=== PATIENT | female | born 1950 | race Caucasian/White ===

== ENCOUNTER → 2020-07-10 15:00 | Outpatient (CLI) | payer MEDICARE, SELFPAY ==
[2020-07-10 16:44] LABS: Basophils # 0.1 K/mm3 (0-0.2); Eosinophils # 0.1 K/mm3 (0.0-0.4); Eosinophils % 1.1 % (0.1-12.0); Hematocrit 42.9 % (37.0-47.0); Lymphocytes # 1.5 K/mm3 (0.7-4.5); Lymphocytes % 26.3 % (10-50); Mean Corpuscular HGB Conc 32.8 g/dL (31.8-35.4); Mean Corpuscular Hemoglobin 30.2 pg (27.0-31.2); Mean Corpuscular Volume 92.2 fl (81-99); Mean Platelet Volume 9.1 fl (7.4-10.4); Monocytes # 0.4 K/mm3 (0.1-1.0); Monocytes % 6.3 % (1.7-9.3); Neutrophils # 3.7 K/mm3 (1.8-7.8); Neutrophils % 65.3 % (37.0-80.0); Platelet Count 262 K/mm3 (142-424); Red Blood Count 4.65 M/mm3 (4.20-5.40); Red Cell Distribution Width 12.4 % (11.5-17.5); White Blood Count 5.7 K/mm3 (4.8-10.8)
[2020-07-10 17:00] LABS: Alanine Aminotransferase 11 U/L (12-78); Albumin Level 4.1 g/dl (3.5-5.0); Albumin/Globulin Ratio 1.3 (1.1-1.8); Alkaline Phosphatase 73 U/L (38-126); Anion Gap 10.4 mEq/L (5-15); Aspartate Amino Transferase 22 U/L (14-36); Bilirubin,Total 0.8 mg/dl (0.2-1.3); Blood Urea Nitrogen 20 mg/dl (7-17); Calcium 9.2 mg/dl (8.4-10.2); Carbon Dioxide 27 mmol/L (22.0-30.0); Chloride 106 mmol/L (98-107); Chol/HDL Ratio 3.4 (1-3.5); Cholesterol 200 mg/dl (140-200); Estimated Glomerular Filt Rate 82 ml/min (>60); GFR (African American) 100 ML/MIN (>60); Globulin 3.2 g/dL (1.3-3.2); Glucose 96 mg/dl (74-100); HDL Cholesterol 58 mg/dl (40-60); Potassium 4.4 mmoL/L (3.5-5.1); Sodium 139 mmol/L (136-145); Total Protein,Serum 7.3 g/dl (6.3-8.2); Triglycerides 102 mg/dl (30-150); VLDL Cholesterol 20 mg/dL (0-40)
[2020-07-10 17:11] LABS: Direct LDL Cholesterol 120.05 mg/dL (100-129)
[2020-07-10 17:17] LABS: T4 (Thyroxine) 10.5 ug/dl (5.53-11.0)
[2020-07-10 17:30] LABS: Thyroid Stimulating Hormone 1.02 uIU/mL (0.465-4.68)
[2020-07-10 17:40] LABS: Hemoglobin A1C 5.3 % (4.0-6.0)
== END ==
PROVIDERS: Visit Provider Family Medicine
DX: I10 Essential (primary) hypertension (principal); E11.9 Type 2 diabetes mellitus without complications
CPT/HCPCS: 80053; 80061; 83036; 84436; 84443; 85025

== ENCOUNTER → 2021-07-16 13:18 | Outpatient (CLI) | payer MEDICARE, SELFPAY ==
[2021-07-15 17:38] LABS: Basophils % 0.5 % (0.1-2.0); Chloride 100 mmol/L (98-107); Eosinophils # 0.1 K/mm3 (0.0-0.4); Hematocrit 41.8 % (37.0-47.0); Hemoglobin 13.3 g/dL (12.2-16.2); Lymphocytes # 1.3 K/mm3 (0.7-4.5); Lymphocytes % 18.6 % (10-50); Mean Corpuscular HGB Conc 31.9 g/dL (31.8-35.4); Mean Corpuscular Hemoglobin 30.3 pg (27.0-31.2); Mean Platelet Volume 8.8 fl (7.4-10.4); Monocytes # 0.5 K/mm3 (0.1-1.0); Monocytes % 6.5 % (1.7-9.3); Neutrophils # 5.3 K/mm3 (1.8-7.8); Neutrophils % 73.5 % (37.0-80.0); Platelet Count 328 K/mm3 (142-424); Red Cell Distribution Width 12.4 % (11.5-17.5); Sodium 135 mmol/L (136-145); White Blood Count 7.2 K/mm3 (4.8-10.8)
[2021-07-15 17:39] LABS: Potassium 4.4 mmoL/L (3.5-5.1)
[2021-07-15 17:41] LABS: Blood Urea Nitrogen 17 mg/dl (7-17); Estimated Glomerular Filt Rate 98 ml/min (>60); GFR (African American) 119 ML/MIN (>60)
[2021-07-15 17:42] LABS: Anion Gap 9.4 mEq/L (5-15); Calcium 8.1 mg/dl (8.4-10.2); Carbon Dioxide 30 mmol/L (22.0-30.0); Glucose 97 mg/dl (74-100)
== END ==
PROVIDERS: Visit Provider Family Medicine
DX: Z86.010 Personal history of colon polyps (principal)
CPT/HCPCS: 80048; 85025

== ENCOUNTER → 2022-07-07 09:30 | Outpatient (CLI) | payer MEDICARE, SELFPAY ==
[2022-07-07 14:09] LABS: Basophils # 0.1 K/mm3 (0-0.2); Eosinophils # 0.1 K/mm3 (0.0-0.4); Eosinophils % 1.1 % (0.1-12.0); Hematocrit 42.7 % (37.0-47.0); Hemoglobin 13.9 g/dL (12.2-16.2); Lymphocytes # 1.4 K/mm3 (0.7-4.5); Lymphocytes % 24.9 % (10-50); Mean Corpuscular HGB Conc 32.6 g/dL (31.8-35.4); Mean Corpuscular Hemoglobin 29.5 pg (27.0-31.2); Mean Corpuscular Volume 90.6 fl (81-99); Mean Platelet Volume 8.5 fl (7.4-10.4); Monocytes # 0.4 K/mm3 (0.1-1.0); Monocytes % 6.8 % (1.7-9.3); Neutrophils # 3.7 K/mm3 (1.8-7.8); Neutrophils % 66.2 % (37.0-80.0); Platelet Count 312 K/mm3 (142-424); Red Blood Count 4.72 M/mm3 (4.20-5.40); Red Cell Distribution Width 12.4 % (11.5-17.5); White Blood Count 5.5 K/mm3 (4.8-10.8)
[2022-07-07 14:16] LABS: Alanine Aminotransferase 13 U/L (12-78); Albumin Level 4.2 g/dl (3.5-5.0); Albumin/Globulin Ratio 1.4 (1.1-1.8); Alkaline Phosphatase 76 U/L (38-126); Anion Gap 7.3 mEq/L (5-15); Aspartate Amino Transferase 21 U/L (14-36); Bilirubin,Total 0.8 mg/dl (0.2-1.3); Blood Urea Nitrogen 19 mg/dl (7-17); Calcium 8.8 mg/dl (8.4-10.2); Carbon Dioxide 31 mmol/L (22.0-30.0); Chloride 103 mmol/L (98-107); Chol/HDL Ratio 3.5 (1-3.5); Cholesterol 184 mg/dl (140-200); Estimated Glomerular Filt Rate 98 ml/min (>60); GFR (African American) 119 ML/MIN (>60); Globulin 2.9 g/dL (1.3-3.2); Glucose 88 mg/dl (74-100); HDL Cholesterol 53 mg/dl (40-60); Potassium 4.3 mmoL/L (3.5-5.1); Sodium 137 mmol/L (136-145); Total Protein,Serum 7.1 g/dl (6.3-8.2); Triglycerides 145 mg/dl (30-150); VLDL Cholesterol 29 mg/dL (0-40)
[2022-07-07 14:35] LABS: Direct LDL Cholesterol 105.24 mg/dL (100-129)
[2022-07-07 14:39] LABS: Free T4 (Free Thyroxine) 1.12 ng/dl (0.78-2.19)
[2022-07-07 14:40] LABS: 25-OH Vitamin D, Total 31.7 ng/mL (30-100)
[2022-07-07 14:55] LABS: Thyroid Stimulating Hormone 1.16 uIU/mL (0.465-4.68)
== END ==
PROVIDERS: PCP Family Medicine; Visit Provider Family Medicine
DX: E03.9 Hypothyroidism, unspecified (principal); R53.83 Other fatigue; E55.9 Vitamin D deficiency, unspecified; K59.00 Constipation, unspecified
CPT/HCPCS: 80053; 80061; 82306; 84439; 84443; 85025

== ENCOUNTER 2023-07-13 12:45 | Outpatient (CLI) | payer MEDICARE, SELFPAY ==
[2023-07-13 13:59] LABS: Adenovirus,PCR Not Detected (NotDetected); Coronavirus 19, PCR Not Detected (NotDetected); Coronavirus 229E Not Detected (NotDetected); Coronavirus NL63 Not Detected (NotDetected); Coronavirus OC43 Not Detected (NotDetected); Coronovirus HKU1,PCR Not Detected (NotDetected); Human Metapneumovirus Not Detected (NotDetected); Influenza A, PCR Not Detected (NotDetected); Influenza AH1, 2009 Not Detected (NotDetected); Influenza AH1, PCR Not Detected (NotDetected); Influenza AH3,PCR Not Detected (NotDetected); Influenza B, PCR Not Detected (NotDetected); Parainfluenza 1, PCR Not Detected (NotDetected); Parainfluenza 2, PCR Not Detected (NotDetected); Parainfluenza 3, PCR Not Detected (NotDetected); Parainfluenza 4, PCR Not Detected (NotDetected); Respiratory Syncytial Virus Not Detected (NotDetected); Rhinovirus/Enterovirus Not Detected (NotDetected)
== END 2023-07-13 23:59 ==
LOC: LAB.DROPOF 12:45
PROVIDERS: PCP Internal Medicine; Visit Provider Internal Medicine
DX: R05.9 Cough, unspecified (principal); R06.02 Shortness of breath; R09.89 Other specified symptoms and signs involving the circulatory and respiratory systems; J02.9 Acute pharyngitis, unspecified; R09.82 Postnasal drip; R53.1 Weakness
CPT/HCPCS: 87632; 87635

== ENCOUNTER 2023-09-13 10:17 | Outpatient (CLI) | payer MEDICARE, SELFPAY ==
[2023-09-13 22:26] LABS: Basophils # 0.1 K/mm3 (0-0.2); Basophils % 0.6 % (0.1-2.0); Eosinophils # 0.1 K/mm3 (0.0-0.4); Eosinophils % 0.7 % (0.1-12.0); Hemoglobin 13.9 g/dL (12.2-16.2); Lymphocytes # 1.4 K/mm3 (0.7-4.5); Lymphocytes % 19.1 % (10-50); Mean Corpuscular HGB Conc 31.6 g/dL (31.8-35.4); Mean Corpuscular Hemoglobin 30.8 pg (27.0-31.2); Mean Corpuscular Volume 97.4 fl (81-99); Mean Platelet Volume 9.7 fl (7.4-10.4); Monocytes # 0.4 K/mm3 (0.1-1.0); Monocytes % 5.5 % (1.7-9.3); Neutrophils # 5.5 K/mm3 (1.8-7.8); Platelet Count 263 K/mm3 (142-424); Red Blood Count 4.52 M/mm3 (4.20-5.40); Red Cell Distribution Width 12.8 % (11.5-17.5); White Blood Count 7.5 K/mm3 (4.8-10.8)
[2023-09-13 23:48] LABS: Chloride 105 mmol/L (98-107); Potassium 4.2 mmoL/L (3.5-5.1); Sodium 137 mmol/L (136-145)
[2023-09-13 23:50] LABS: Alanine Aminotransferase 13 U/L (12-78); Aspartate Amino Transferase 20 U/L (14-36); Blood Urea Nitrogen 19 mg/dl (7-17); Estimated Glomerular Filt Rate 120 ml/min (>60); GFR (African American) 146 ML/MIN (>60)
[2023-09-13 23:51] LABS: Albumin Level 3.7 g/dl (3.5-5.0); Albumin/Globulin Ratio 1.4 (1.1-1.8); Alkaline Phosphatase 72 U/L (38-126); Anion Gap 10.2 mEq/L (5-15); Bilirubin,Total 0.8 mg/dl (0.2-1.3); Calcium 9.1 mg/dl (8.4-10.2); Carbon Dioxide 26 mmol/L (22.0-30.0); Chol/HDL Ratio 2.9 (1-3.5); Cholesterol 205 mg/dl (140-200); Globulin 2.6 g/dL (1.3-3.2); Glucose 89 mg/dl (74-100); HDL Cholesterol 71 mg/dl (40-60); Total Protein,Serum 6.3 g/dl (6.3-8.2); Triglycerides 130 mg/dl (30-150); VLDL Cholesterol 26 mg/dL (0-40)
[2023-09-14 00:02] LABS: Direct LDL Cholesterol 116.92 mg/dL (100-129)
[2023-09-14 00:22] LABS: Thyroid Stimulating Hormone 1.21 uIU/mL (0.465-4.68)
== END 2023-09-13 23:59 | disposition home or self-care (01) ==
PROVIDERS: PCP Family Medicine; Visit Provider Family Medicine
DX: E78.5 Hyperlipidemia, unspecified (principal); K21.9 Gastro-esophageal reflux disease without esophagitis; E07.9 Disorder of thyroid, unspecified; R53.83 Other fatigue
CPT/HCPCS: 80053; 80061; 84443; 85025

== ENCOUNTER 2024-04-01 08:17 | Emergency (ER) | payer MEDICARE, SELFPAY ==
[2024-04-01 08:19] VITALS: BP 127/89; PULSE 97; RESP 18; TEMP 36.4; O2SAT 98; BMI 20.5
--- NOTE | 2024-04-01 08:38 | CT_ITS ---
FINAL REPORT TECHNIQUE: Axial imaging of the pelvis was obtained without contrast.This study was performed with techniques to keep radiation doses as low as reasonably achievable, (ALARA). Individualized dose reduction technique using automated exposure control or adjustment of mA and/or kV according to the patient's size were employed. CLINICAL HISTORY: right hip pain FINDINGS: There is no acute fracture or dislocation. Femoral heads are located bilaterally. 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 Soft tissues demonstrate no acute abnormality. Sacral ala are intact. Soft tissues are unremarkable. IMPRESSION: Change without acute bony abnormality of the pelvis. Reviewed, Interpreted and Dictated by Malina Rose MD Transcribed by Angely Antony Authenticated and [facility]
--- NOTE | 2024-04-01 08:38 | CT_ITS ---
FINAL REPORT TECHNIQUE: Thin section axial images are obtained through the abdomen and pelvis after intravenous contrast. Reconstruction images were obtained from the axial data. Exam was performed using dose reduction techniques. CLINICAL HISTORY: decreased po intake, n/v 25 lb wt loss FINDINGS: LUNG BASES: Lung bases are clear. Heart size is normal. LIVER: Slightly nodular contour. No focal lesion. GALLBLADDER/BILIARY SYSTEM: Gallbladder is present. No gallstones. No biliary dilatation. SPLEEN: Unremarkable. PANCREAS: Unremarkable. ADRENALS: Unremarkable. SYSTEM: No hydronephrosis, solid renal mass, or renal stone. There are bilateral parapelvic renal cysts. Unremarkable urinary bladder. Pelvic organs are unremarkable for age. GI TRACT: No small bowel obstruction or dilatation. Normal appendix. Diverticulosis without evidence of diverticulitis. Otherwise, no acute colon abnormality. LYMPH NODES/RETROPERITONEUM/MESENTERY: No lymphadenopathy. No abdominal aortic aneurysm. OTHER: No ascites. Uterus is present. No abnormal adnexal mass. Remaining soft tissues without acute abnormality. BONES: No acute osseous abnormality. Scoliosis is noted. IMPRESSION: No acute process. Slightly nodular liver, cirrhosis not excluded. Reviewed, Interpreted and Dictated by Malina Rose MD Transcribed by Angely Antony Authenticated and [facility]
--- NOTE | 2024-04-01 08:42 | ED_ITS ---
Discharge Plan Disposition Chief Complaint: Nausea/Vomiting/Diarrhea Prescriptions Prescriptions: No Action pravastatin 20 mg tablet See Rx Instructions .ROUTE .COMPLEX Qty: 90 3RF Dose Instruction: TAKE 1 TABLET DAILY Rx Instructions: TAKE 1 TABLET DAILY Zyrtec 10 mg capsule 10 mg PO DAILY PRN (Reason: allergy symptoms) Qty: 90 3RF Referrals Follow up/Referrals: Edmund Chowdary MD [Primary Care Provider] - See instructions Clinical Impressions Clinical Impression: Unintentional weight loss, Hip pain, right, Nausea, Parapelvic renal cyst Instructions Patient Instructions: DI for Diarrhea and Traveler's Diarrhea -- Adult, DI for Diarrhea and Traveler's Diarrhea -- Child, DI for Nausea -- Adult, DI for Nausea -- Child Print Language Print Language: Tristanian Discharge ED Provider: Lit Stroud General Adult HPI General Chief complaint: Nausea/Vomiting/Diarrhea Stated complaint: Pain in R hip and abd, vomiting Time Seen by Provider: 04/01/24 08:30 Mode of Arrival: Ambulatory Source of Information: Patient Limitations: No Limitations Description of Symptoms (Recalled from ER Triage Doc. by RN): Patient reports nausea, inability to keep anything down and right hip pain. States she has been seen at [place] [facility] twice and was told she has bursitis in her hip. States she is unable to keep her steroid down and the Zofran they prescribed is not helping. History of Present Illness HPI narrative: Patient is a 73-year-old female presenting today with multiple complaints. Primarily she states that she has had decreased p.o. intake and inability to tolerate anything by mouth over the last 3 weeks and is 25 pounds of unintentional weight loss. She has been to [facility] twice. She told him she had right hip pain was diagnosed with bursitis put on diclofenac but she has been unable to take that due to her p.o. intolerance. she brings the records with her urinalysis showed too numerous to count red blood cells and had trace leukocyte esterase. She denies any urinary symptoms at the moment. No history of malignancy that she is aware of. No fevers or chills no diarrhea. Related Data Previous Rx's ?Medication ?Instructions ?Recorded cetirizine 10 mg capsule (Zyrtec) 10 mg PO DAILY PRN allergy 07/07/22 symptoms #90 caps pravastatin 20 mg tablet See Rx Instructions .Route 09/13/23 .COMPLEX #90 tabs Allergies Allergy/AdvReac Type Severity Reaction Status Date / Time No Known Allergies Allergy Verified 09/13/23 08:55 [facility] Disclaimer: The information contained in this section may have been updated after the patient was seen, as this information can be updated by other users. Medical History (Updated 04/01/24 @ 10:28 by Lit Stroud MD) Hx of cataract GERD (gastroesophageal reflux disease) History of colon polyps Surgical History (Updated 09/13/23 @ 08:57 by RISHI Newton) Hx of mastoidectomy Family History (Updated 09/13/23 @ 08:57 by RISHI Newton) Other Cancer Coronary artery disease Social History Smoking Status: Never smoker alcohol intake: never substance use type: denies use current occupational status: retired household members: spouse housing: house Other Medical History Have you received the Pneumonia Vaccine: Yes ROS Obtained: Yes All systems reviewed & no additional complaints except as documented Physical Exam General General appearance: alert and in no apparent distress Respiratory Respiratory exam: Present normal lung sounds bilaterally Cardiovascular Cardiovascular exam: Present regular rate, normal rhythm and clicks Abdominal Exam Abdominal exam: Present soft; Absent distention or tenderness Extremities Exam Extremities exam: Present other (Range of motion of the hip on the right side is normal no obvious deformities) Neurological Exam Neurological exam: Present alert and oriented X3 Medical Decision Making Medical Records Screening: Per USPSTF and CDC recommendations, given the prevalence of disease in our region, it is our hospital?s policy to screen for HIV and viral Hepatitis for all patients aged 18 and over and those with ongoing risk factors. Edi Inquiry Pt receiving controlled substance: No Vital Signs: 04/01/24 08:19 04/01/24 09:00 04/01/24 09:01 Temperature 97.5 F L Temperature Source Oral Pulse Rate 68 74 Pulse Rate [Radial] 97 H Respiratory Rate 18 Blood Pressure 164/85 H Blood Pressure [Right Arm] 127/89 Blood Pressure Mean [Right Arm] 101 Blood Pressure Source [Right Arm] Automatic Cuff Blood Pressure Position [Right Arm] Sitting 02 Sat by Pulse Oximetry 98 98 98 Oxygen Delivery Method Room Air Room Air Lab Data Lab results reviewed: Yes I reviewed the patient's lab results. Lab Results 04/01/24 08:30: WBC 6.2, RBC 4.72, Hgb 14.6, Hct 43.0, MCV 91.0, MCH 30.9, MCHC 34.0, RDW 12.5, Plt Count 213, MPV 8.0, Neut % (Auto) 76.0, Lymph % (Auto) 16.5, [place] % (Auto) 6.3, Eos % (Auto) 0.6, Baso % (Auto) 0.7, Neut # (Auto) 4.7, Lymph # (Auto) 1.0, [place] # (Auto) 0.4, Eos # (Auto) 0.0, Baso # (Auto) 0.0, Sodium 139, Potassium 3.8, Chloride 104, Carbon Dioxide 28, Anion Gap 10.8, BUN 24 H, Creatinine 0.60, Estimated Creat Clear 42, Estimated GFR 97, Est GFR ( Amer) 118, Glucose 105 H, Lactate 1.0, Calcium 9.0, Phosphorus 3.0, Magnesium 2.0, Total Bilirubin 1.0, AST 23, ALT 16, Alkaline Phosphatase 54, Total Creatine Kinase 40, Total Protein 6.9, Albumin 4.1, Globulin 2.8, Albumin/Globulin Ratio 1.5, Lipase 55 04/01/24 10:29: Urine Color Yellow, Urine Appearance Clear, Urine pH 7.0, Ur Specific [place] 1.010, Urine Protein Negative, Urine Glucose (UA) Negative, Urine Ketones 1+, Urine Blood 2+ A, Urine Nitrate Negative, Urine Bilirubin Negative, Urine Urobilinogen 1.0, Ur Leukocyte Esterase Negative, Urine RBC 10- 20, Urine WBC None, Ur Squamous Epith Cells None, Urine Bacteria None 04/01/24 08:30 04/01/24 08:30 Orders (Tests/Meds): ED MEDICATIONS Generic Name Dose Route Start Last Admin Trade Name Freq PRN Reason Stop Dose Admin Sodium Chloride 10 ml 04/01/24 09:15 04/01/24 09:16 Sodium Chloride 0.9% 10ml Syr (Rad Only) IV 05/01/24 09:14 10 ml NEEDED PRN Administration Maintain IV Site Discontinued Medications Generic Name Dose Route Start Last Admin Trade Name Freq PRN Reason Stop Dose Admin Lactated Ringer's 1,000 mls @ 999 mls/hr 04/01/24 08:45 04/01/24 08:48 Lactated Ringer's 1000 Ml Bag IV 04/01/24 09:45 999 mls/hr .Q1H1M WARREN Administration Iopamidol 75 ml 04/01/24 09:15 04/01/24 09:15 Iopamidol-370 (76%);100ml Bottle IV 04/01/24 09:16 75 ml ONCE ONE Administration Ondansetron HCl 4 mg 04/01/24 08:38 04/01/24 08:47 Ondansetron 4mg/2ml Vial IV 04/01/24 08:39 4 mg ONCE ONE Administration ORDERS Category Date Time Status CT abdomen pelvis w con Stat Cat Scan 04/01/24 08:[address] bony pelvis Stat Cat Scan 04/01/24 08:38 Completed POCUS Point of Care (ER Only) Stat Exams 04/01/24 10:20 Completed CBC w/Auto Diff [Complete Blood Count Auto Diff] Stat Lab 04/01/24 08:30 Completed CK [Creatine Kinase] Stat Lab 04/01/24 08:30 Completed CMP [Comprehensive Metabolic Panel] Stat Lab 04/01/24 08:30 Completed HIV (1&2) Antibody Rapid Stat Lab 04/01/24 08:30 Received Hep C Ab with Reflex to RNA Stat Lab 04/01/24 08:30 Received Lactic Acid Stat Lab 04/01/24 08:30 Completed Lipase Stat Lab 04/01/24 08:30 Completed Magnesium Stat Lab 04/01/24 08:30 Completed Phosphorous Stat Lab 04/01/24 08:30 Completed UA [Urinalysis and Microscopic] Stat Lab 04/01/24 10:29 Completed Medical Decision Narrative: 73-year-old with multiple complaints that are concerning. She has had nausea for 3 weeks decreased p.o. intake 25 pounds of unintentional weight loss also had a urinalysis at the outside hospital that showed too numerous to count RBCs. She also complains of right severe hip pain. All of this is highly concerning to me for malignancy. Will get a bony pelvis CT scan as well as a CT abdomen pelvis with contrast to further look into intra-abdominal pathology. Rhabdomyolysis, renal abnormalities, urinary tract infection including pyelonephritis are on the differential as well. IV fluids and nausea medicine have been administered will reassess. CT scan was performed which I personally interpreted which shows significant dilatation within the bilateral renal pelvises hydronephrosis versus parapelvic cyst. Radiology read this they believe that is parapelvic cyst. I did a limited bedside ultrasound see procedure note which does not fact show noncommunicating noninterconnected areas of cystic masses consistent with parapelvic cysts but cannot rule out hydronephrosis.. Given the fact that this is a rare phenomenon and that she has had significant weight loss and historically hematuria awaiting the urinalysis for further evaluation and may discussed the case with urology for further consultation. I spoke with Dr. Gigi Mckeon at transfer center reviewed images with him and on CT imaging he and I certainly agree that we cannot definitely rule out hydronephrosis and also the fact that she has had 25 pounds of unintentional weight loss and intractable nausea and vomiting at home she will need a more extensive workup and will need urology consultation. For this reason he accepted the patient to for further evaluation and management the patient is agreeable to this plan. Procedures Miscellaneous Procedure Procedure Performed: Limited renal ultrasound Indication: A focused ultrasound of the kidneys was performed to evaluate for hydronephrosis and nephrolithiasis. The ultrasound was performed with the following indications, as noted in the H&P: Abnormal CT scan with dilatation in bilateral kidneys Identified structures: Bilateral kidney Findings: Extensive cystic structures that are hypoechoic in the pelvic area that are noncommunicating consistent with parapelvic cyst Impression: Extensive bilateral parapelvic cysts no definitive evidence of hydronephrosis Images were saved to permanent archive The study was technically adequate CPT: 97601-42 This study was performed by me, and I personally interpreted all images/videos. Based on my clinical judgement, these images were adequate and did not necessitate further imaging. Critical Care Critical Care Time Critical Care Time: Yes Attestation: On 04/01/24, the high probability of a clinically significant, sudden or life threatening deterioration of the following system(s) required my full and direct attention, intervention and personal management. The time I documented below is in addition to time spent performing reported procedures but includes the following listed in this critical care notation. Total Time Total Critical Care Time: 35
[2024-04-01 08:46] LABS: Basophils % 0.7 % (0.1-2.0); Eosinophils % 0.6 % (0.1-12.0); Hemoglobin 14.6 g/dL (12.2-16.2); Lymphocytes % 16.5 % (10-50); Mean Corpuscular Hemoglobin 30.9 pg (27.0-31.2); Monocytes # 0.4 K/mm3 (0.1-1.0); Monocytes % 6.3 % (1.7-9.3); Neutrophils # 4.7 K/mm3 (1.8-7.8); Platelet Count 213 K/mm3 (142-424); Red Blood Count 4.72 M/mm3 (4.20-5.40); Red Cell Distribution Width 12.5 % (11.5-17.5); White Blood Count 6.2 K/mm3 (4.8-10.8)
[2024-04-01] MEDS: ONDANSETRON 4MG/2ML VIAL 4 MG IV (08:47)
[2024-04-01 08:48] LABS: Albumin Level 4.1 g/dl (3.5-5.0); Chloride 104 mmol/L (98-107); Potassium 3.8 mmoL/L (3.5-5.1); Sodium 139 mmol/L (136-145)
[2024-04-01] MEDS: LACTATED RINGERS 1000ML 1,000 ML 999 ML IV (08:48)
[2024-04-01 08:51] LABS: Alanine Aminotransferase 16 U/L (12-78); Albumin/Globulin Ratio 1.5 (1.1-1.8); Alkaline Phosphatase 54 U/L (38-126); Anion Gap 10.8 mEq/L (5-15); Aspartate Amino Transferase 23 U/L (14-36); Blood Urea Nitrogen 24 mg/dl (7-17); Carbon Dioxide 28 mmol/L (22.0-30.0); Creatine Kinase 40 U/L (30-135); Creatinine Clearance Estimated 42 mL/min (50-200); Estimated Glomerular Filt Rate 97 ml/min (>60); GFR (African American) 118 ML/MIN (>60); Globulin 2.8 g/dL (1.3-3.2); Glucose 105 mg/dl (74-100); Lipase 55 U/L (23-300); Total Protein,Serum 6.9 g/dl (6.3-8.2)
[2024-04-01 09:00] VITALS: BP 164/85; PULSE 68; O2SAT 98
[2024-04-01 09:01] VITALS: PULSE 74; O2SAT 98
[2024-04-01] MEDS: IOPAMIDOL-370 (76%);100ML BOTTLE 75 ML IV (09:15)
[2024-04-01] MEDS: SODIUM CHLORIDE 0.9% 10ML SYR (RAD ONLY) 10 ML IV (09:16)
--- NOTE | 2024-04-01 09:17 | PC.NURSE ---
pt back from ct scan
[2024-04-01 10:34] LABS: Microscopic, Urine URINE MICROSCOPIC (MICROSCOPIC)
[2024-04-01 11:02] LABS: Appearance,Urine CLEAR (Clear); Bilirubin,Urine Negative (Negative); Blood, Urine 2+ (Negative); Color,Urine YELLOW (Yellow); Glucose,Urine (UA) Negative (Negative); Ketones,Urine 1+ (Negative); Leukocyte Esterase,Urine Negative (Negative); Nitrate,Urine Negative (Negative); Protein,Urine Negative (Negative)
--- NOTE | 2024-04-01 11:22 | PC.NURSE ---
Calling [facility] for Urology consult
--- NOTE | 2024-04-01 11:25 | PC.NURSE ---
Dr. Stroud s[facility], Dr. Mckeon
--- NOTE | 2024-04-01 11:29 | PC.NURSE ---
Dr Stroud spoke with Dr Mckeon at [facility] and he accepted her to [facility]
--- NOTE | 2024-04-01 12:02 | PC.NURSE ---
[facility] called for transport to [facility]
[2024-04-01 12:16] VITALS: BP 140/80; PULSE 70; RESP 16; TEMP 36.4; O2SAT 98
[2024-04-01 16:15] LABS: HIV (1&2) Antibody Rapid NONREACTIVE (NONREACTIVE)
[2024-04-02 11:19] LABS: HCV Ab Non Reactive (Non Reactive)
== END 2024-04-01 12:35 | disposition short-term general hospital (02) ==
PROVIDERS: Emergency Provider Student in an Organized Health Care Education/Training Program; PCP Family Medicine
DX: N28.1 Cyst of kidney, acquired (principal); R10.31 Right lower quadrant pain; R63.4 Abnormal weight loss; R11.2 Nausea with vomiting, unspecified; M25.551 Pain in right hip
CPT/HCPCS: 72192; 74177; 80053; 81001; 82550; 83605; 83690; 83735; 84100; 85025; 86803; 87389; 96361; 96374; 99291; J2405; J7120; Q9967

== ENCOUNTER 2024-06-20 08:10 | Day surgery (SDC) | payer MEDICARE, SELFPAY ==
[2024-06-18 11:21] VITALS: BMI 22.3
[2024-06-20 08:51] VITALS: BP 153/92; PULSE 76; RESP 16; TEMP 36.6; O2SAT 99
--- NOTE | 2024-06-20 09:10 | P.PNANES_ITS ---
[facility] Disclaimer: The information contained in this section may have been updated after the patient was seen, as this information can be updated by other users. Medical History Hx of cataract GERD (gastroesophageal reflux disease) History of colon polyps Surgical History History of colonoscopy Hx of mastoidectomy Family History Other Cancer Coronary artery disease Social History Smoking Status: Never smoker alcohol intake: never substance use type: denies use current occupational status: retired Travel in the last 8 weeks: None household members: spouse housing: house caffeine: No Have you lived/traveled outside [place] in past 30 days?: No Contact w/someone who lives/traveled outside US past 30 days?: No Exposure to someone with infectious disease in past 14 days?: No Do you have a fever (greater than 100.4 F or 38 C)?: No Have you tested positive for COVID-19: No Exposed to someone with COVID-19 in past 14 days?: No Do you have a sore throat?: No Do you have a cough?: No Do you have any weakness?: No Do you have any diarrhea?: No Are you experiencing any unusual bleeding?: No Do you have any muscle aches/pain?: No Do you have any abdominal pain?: No Are you experiencing loss of taste or smell?: No [facility] Anesthesia Checklist Patient Identification Patient Identification: Arm Band Structural Data Admitted From: Home Planned Operative Procedure/s: EGD Consent for Planned Operative Procedure(s) Verified: Yes Verified Documents: Surgical Consent and History and Physical NPO Status Verified Time NPO: 00:00 Additional verifications Anesthesia Reactions: No Airway Assessment Mallampati Score:: Class II C-Spine Mobility Assessed: Yes TMJ Mobility Assessed: Yes Dentition: Edentulous Neurological Assessment Level of Consciousness: Awake, Alert and Appropriate Anesthesia Plan Anesthesia Risk discussed: Yes Anesthesia Plan: Verified ASA Class: II Anesthesia Type: MAC
--- NOTE | 2024-06-20 09:28 | EXP.HP ---
History of Present Illness *Admission Date: 06/20/24 *Reason for visit:: Belching, dry heaves, nausea and weight loss *History of present illness: Mrs. Mejia is a 73-year-old female who is here for diagnostic upper endoscopy secondary to nausea, dry heaves, vomiting and heartburn. The examination is deemed medically necessary for diagnostic EGD. The patient has been seen, interviewed and examined prior to the procedure by both myself and the anesthesia provider. [facility] Disclaimer: The information contained in this section may have been updated after the patient was seen, as this information can be updated by other users. Medical History (Updated 06/20/24 @ 09:30 by Guanakito Kenney II, MD) Hx of cataract GERD (gastroesophageal reflux disease) History of colon polyps Surgical History History of colonoscopy Hx of mastoidectomy Family History Other Cancer Coronary artery disease Social History Smoking Status: Never smoker alcohol intake: never substance use type: denies use current occupational status: retired Travel in the last 8 weeks: None household members: spouse housing: house caffeine: No Have you lived/traveled outside US in past 30 days?: No Contact w/someone who lives/traveled outside [place] past 30 days?: No Exposure to someone with infectious disease in past 14 days?: No Do you have a fever (greater than 100.4 F or 38 C)?: No Have you tested positive for COVID-19: No Exposed to someone with COVID-19 in past 14 days?: No Do you have a sore throat?: No Do you have a cough?: No Do you have any weakness?: No Do you have any diarrhea?: No Are you experiencing any unusual bleeding?: No Do you have any muscle aches/pain?: No Do you have any abdominal pain?: No Are you experiencing loss of taste or smell?: No Other Medical History Have you received the Pneumonia Vaccine: Yes Review of Systems Review of Systems Review of systems (narrative): Negative *Cardiovascular Comments: Negative *Gastrointestinal Comments: Negative *Genitourinary Comments: Negative *Musculoskeletal Comments: Negative *Neurologic Comments: Negative Meds Home Medications and Allergies Home Medications ?Medication ?Instructions ?Recorded ?Confirmed ?Type cetirizine 10 mg capsule (Zyrtec) 10 mg PO DAILY PRN allergy 07/07/22 06/20/24 Rx symptoms #90 caps ondansetron 4 mg disintegrating 4 mg PO Q6 PRN Nausea And Vomiting 04/02/24 06/20/24 History tablet aluminum-mag hydroxide-simethicone 5 ml PO QID PRN Heartburn 04/18/24 06/20/24 History 400 mg-400 mg-40 mg/5 mL oral susp (Mylanta Maximum Strength) pravastatin 20 mg tablet 20 mg PO DAILY 06/18/24 06/20/24 History New Prescriptions to Start Prescriptions: Allergies Allergy/AdvReac Type Severity Reaction Status Date / Time No Known Allergies Allergy Verified 06/20/24 09:00 Exam Data for Last 24 hours Vital signs and Labs for Last 24 Hours: Temp Pulse Resp BP Pulse Ox O2 Del Method 97.9 F 76 16 153/92 H 99 Room Air 06/20/24 08:51 06/20/24 08:51 06/20/24 08:51 06/20/24 08:51 06/20/24 08:51 06/20/24 08:51 I & O for Last 24 hours: Intake & Output 06/17/24 06/18/24 06/19/24 06/20/24 23:59 23:59 23:59 23:59 Weight 130 lb *Routine HEENT Exam Head: Present normocephalic Eye: Present EOMI and PERRL ENT: Present mucous membranes moist *Routine Neck Exam Neck: Present supple *Routine Respiratory Exam Respiratory: Present CTA bilaterally *Routine Cardiovascular Exam Cardiovascular: Present RRR *Routine Abdominal Exam Abdominal: Present soft and normoactive bowel sounds; Absent tenderness *Routine Rectal Exam Rectal:: deferred *Routine Genitalia Exam Genitalia:: deferred *Routine Extremities Exam Extremities: Absent cyanosis, clubbing or edema *Routine Skin Exam Skin: Present warm; Absent rash *Routine Neurological Exam Neurological: Present alert and oriented X3 Assessment and Plan *Assessment and plan (1) Nausea: Status: Acute Category: Medical Code(s): R11.0 - Nausea (2) Dry heaves: Status: Acute Category: Medical Code(s): R11.10 - Vomiting, unspecified (3) Heartburn: Status: Acute Category: Medical Code(s): R12 - Heartburn (4) Bloating: Status: Acute Category: Medical Code(s): R14.0 - Abdominal distension (gaseous) (5) GERD (gastroesophageal reflux disease): Status: Acute Qualifiers: Esophagitis presence: esophagitis presence not specified Qualified Code(s): K21.9 - Gastro-esophageal reflux disease without esophagitis Category: Medical Code(s): K21.9 - Gastro-esophageal reflux disease without esophagitis Plan A/P: 1. Nausea, heartburn, dry heaves and vomiting is the preprocedural diagnosis. The patient will be anesthetized/sedated using MAC sedation. The patient has been seen and examined. Cardiac and lung assessment prior to the examination is stable. Proceed with planned diagnostic EGD
--- NOTE | 2024-06-20 09:30 | HMH.PROCNOTE ---
[facility] Procedure Note Date: 06/20/24 Time: 09:48 Procedure Note:: Upper Endoscopy Procedure Report: Esophagogastroduodenoscopy with cold biopsies Endoscopost: Guanakito Kenney II, MD Referring Physician: Pavel Chowdary MD Date of Procedure: June 20, 2024 Equipment: Olympus GIF 190 standard upper endoscope Sedation: MAC sedation Indications: Mrs. Mejia is a 73-year-old female who is here for diagnostic EGD secondary to heartburn, belching and formerly with dry heaves and nausea. She has lost 30 pounds. She was having constipation but has improved with MiraLAX daily. She does not tolerate the palatability of Metamucil. She had a CAT scan during her ED visit that was unremarkable but she did have hydronephrosis and was transferred to the [facility] and is followed by them. She still gets moderate gassiness and some bloating. She reports no abdominal pain, melena or hematochezia. Her last colonoscopy was in 2020 (in [place]). She has never had an EGD. She reports no dysphagia. Most of her nausea and dry heaves have markedly improved. Procedure: Prior to the procedure, a history and physical exam was performed, and patient's medications and allergies were reviewed. The risks, benefits and alternatives of the sedation and procedure were discussed with the patient. All questions were answered and informed consent was obtained. The patient was brought to the procedure room. Patient identification and proposed procedure were verified by the physician and the nurse. The patient was placed in a left lateral decubitus position and the scope was passed under direct vision. Throughout the procedure, the patient's blood pressure, pulse, and oxygen saturations were monitored continuously. The upper GI endoscopy was accomplished without difficulty. The patient tolerated the procedure well. Findings: The scope was passed directly into the upper esophagus and advanced to the third portion of the duodenum. The post bulbar duodenum and duodenal bulb were normal with normal mucosa and conniventes. There was some punctate lymphoid whitish nodules. The scope was withdrawn through a normal duodenal bulb and pylorus into the stomach. There was very mild linear reactive gastropathy of the antrum. The body and fundus were normal. Upon retroflexion there was a 3 cm hiatal hernia. Biopsies were taken from the antrum. The scope was then withdrawn into the esophagus. There were 2 short tongues of salmon-colored mucosa that were biopsied to rule out intestinal metaplasia. There was no evidence of reflux esophagitis. There were strong tertiary contractions and evidence of moderate esophageal dysmotility. There were faint esophageal varices. The remainder of the esophageal mucosa was normal. Impression: 1. Nonerosive GERD with medium size 3 cm hiatal hernia and moderate esophageal dysmotility 2. Very mild antral gastropathy Plan: I will follow-up the biopsies. The patient is much clinically improved. We will discuss additional treatment options.
[2024-06-20 09:34] VITALS: O2SAT 100
[2024-06-20 09:54] VITALS: BP 101/67; PULSE 80; RESP 18; TEMP 36.3; O2SAT 98
[2024-06-20 10:04] VITALS: BP 102/67; PULSE 74; RESP 18; O2SAT 95
[2024-06-20 10:14] VITALS: BP 118/71; PULSE 74; RESP 18; O2SAT 97
[2024-06-20 10:26] VITALS: BP 123/59; PULSE 64; RESP 18; O2SAT 98
== END 2024-06-20 10:24 | disposition home or self-care (01) ==
PROVIDERS: PCP Family Medicine; Visit Provider Internal Medicine Gastroenterology
PROC: 0DJ08ZZ Inspection of Upper Intestinal Tract, Via Natural or Artificial Opening Endoscopic (ICD-10-PCS; CPT 43239; principal; 2024-06-20 10:00)
DX: R11.0 Nausea (principal); R11.10 Vomiting, unspecified; R12 Heartburn; R14.0 Abdominal distension (gaseous); K21.9 Gastro-esophageal reflux disease without esophagitis; R43.8 Other disturbances of smell and taste; K31.9 Disease of stomach and duodenum, unspecified; K44.9 Diaphragmatic hernia without obstruction or gangrene; K22.4 Dyskinesia of esophagus
CPT/HCPCS: 43239

== ENCOUNTER 2024-08-19 09:05 | Outpatient (CLI) | payer MEDICARE, SELFPAY ==
[2024-08-19 18:14] LABS: Basophils # 0.1 K/mm3 (0-0.2); Basophils % 0.9 % (0.1-2.0); Eosinophils % 0.4 % (0.1-12.0); Hematocrit 39.8 % (37.0-47.0); Hemoglobin 12.9 g/dL (12.2-16.2); Lymphocytes # 1.3 K/mm3 (0.7-4.5); Lymphocytes % 24.2 % (10-50); Mean Corpuscular HGB Conc 32.4 g/dL (31.8-35.4); Mean Corpuscular Hemoglobin 30.5 pg (27.0-31.2); Mean Corpuscular Volume 94.1 fl (81-99); Mean Platelet Volume 10.5 fl (7.4-10.4); Monocytes # 0.5 K/mm3 (0.1-1.0); Neutrophils # 3.4 K/mm3 (1.8-7.8); Neutrophils % 64.3 % (37.0-80.0); Nucleated Red Blood Cells # 0 10^3/uL; Nucleated Red Blood Cells % 0 %; Platelet Count 222 K/mm3 (142-424); Red Blood Count 4.23 M/mm3 (4.20-5.40); Red Cell Distribution Width-SD 41.6 fL; White Blood Count 5.3 K/mm3 (4.8-10.8)
[2024-08-19 19:50] LABS: Albumin Level 3.7 g/dl (3.5-5.0); Chloride 105 mmol/L (98-107)
[2024-08-19 19:51] LABS: Potassium 4.4 mmoL/L (3.5-5.1); Sodium 138 mmol/L (136-145)
[2024-08-19 19:53] LABS: Alanine Aminotransferase 11 U/L (12-78); Albumin/Globulin Ratio 1.3 (1.1-1.8); Alkaline Phosphatase 65 U/L (38-126); Anion Gap 11.4 mEq/L (5-15); Aspartate Amino Transferase 19 U/L (14-36); Bilirubin,Total 0.8 mg/dl (0.2-1.3); Blood Urea Nitrogen 21 mg/dl (7-17); Carbon Dioxide 26 mmol/L (22.0-30.0); Cholesterol 180 mg/dl (140-200); Estimated Glomerular Filt Rate 97 ml/min (>60); GFR (African American) 118 ML/MIN (>60); Globulin 2.8 g/dL (1.3-3.2); Total Protein,Serum 6.5 g/dl (6.3-8.2); Triglycerides 79 mg/dl (30-150); VLDL Cholesterol 16 mg/dL (0-40)
[2024-08-19 19:54] LABS: Calcium 8.5 mg/dl (8.4-10.2); Chol/HDL Ratio 2.7 (1-3.5); Glucose 85 mg/dl (74-100); HDL Cholesterol 66 mg/dl (40-60)
[2024-08-19 20:23] LABS: Thyroid Stimulating Hormone 0.75 uIU/mL (0.465-4.68)
--- OUTSIDE RECORDS SUMMARY | 2024-08-20 14:33 | XMS_ITS | Data Portability ---
Author Organization [facility] SURAJ Bledsoe SWANTON CLOSED Address [address] [place] [address] Care Team Providers Care Veneer Stacker Name Role Phone AMOL MARRERO Primary Care Provider Assessment No assessment recorded. Plan of Treatment Reminders Order Date Submit Date Provider Last Modified By Organization Details Last Modified Time Details Appointments None record ed. Lab None record ed. Referral None record ed. Procedures None record ed. Surgeries None record ed. Imaging None record ed. Medication Orders None record ed. Patient TargetsNo targets recorded. Patient Instructions Encounter Date Encounter Id Patient Instructions Last Modified By Organization Details Last Modified Time 09/22/2022 [id number] 1. Bilateral mastoid debridement performed under binocular microscopy 2. Audiogram performed and interpreted 3. F/u 6mo [email or web address] Not available 09/22/2022 13:55:47 72-year-old history of bilateral canal wall down mastoidectomy's 40 to 50 years ago seen today to establish care. She has hearing aids from an outside provider. She has not had her ears cleaned in a number of years but she is today at about every 6 months which would be right for her history. Debrided today. Following debridement she feel like her hearing is overall stable and declined audiogram with our audiology team stating she just got 1 checked in April with her hearing aid provider. We will otherwise plan to get on every 6 months follow-ups for routine mastoid debridements. [email or web address] Not available 09/22/2022 17:13:18 Reason for Referral None Reported. Procedures Surgical History Date Name Laterality Status Provider Name and Address Organization Details Recorded Time Debridement Mastoid Cavity completed YASMANY PAN MD [facility] [place], [address], [facility] 09/22/2022 17:11:44 Ears/Nose/Throa t Surgery completed Glo Valencia [facility] 09/22/2022 13:27:52 Xcapsl ctrc rmvl cplx wo ecp [facility] 13:28:03 Ears/Nose[facility]Th[facility]a t [facility] 09/22/2022 13:28:20 Imaging Results None recorded. Procedure Notes None recorded. Medical Equipment None Reported. Allergies No known drug allergies Medications Name Sig Start Date Stop Date Status Note LastModified by Organization Details LastModified Time pantoprazole 40 mg tablet,delayed release active Not Available Not Available Not Available pravastatin 20 mg tablet active Not Available Not Available No t Available Zyrtec 10 mg capsule Take by oral route. active Not Available Not Available No t Available Vitals Date Recorded Body height Body mass index (BMI) Body weight Heart rate Systolic blood pressure Diastolic blood pressure Provider Name and Address Organization Details Last Updated DateTime 165.1 cm 26.1 kg/m2 98177 g 105 /min 141 mm[Hg] 88 mm[Hg] Glo [facility] 13:27:35 Social History Question Answer Notes LastModified by Organizat ion Details LastModified Time Tobacco Smoking Status Never [facility]oker [facility] 09/22/2022 13:28:47 What Is Your Level Of Alcohol Consumption? None [email or web address] Information not available 09/22/2022 Do You Use Any Illicit Or Recreational Drugs? No [email or web address] Information not available 09/22/2022 Do You Or Have You Ever Used Any Other Forms Of Tobacco Or Nicotine? No [email or web address] Information not available 09/22/2022 Sex: Unknown Functional Status None recorded. Mental Status None recorded. Family History Relationship Description Onset Age of this Age Resolved Age Notes LastModified by Organization Details LastModified Time Sister Family history of malignant neoplasm [email or web address] Not available 13:29:07 Brother Family history of malignant neoplasm [email or web address] Not available 05/ 13:29:07 Brother Asthma [email or web address] Not availa ble 09/22/2022 13:29:39 Brother Diabetes mellitus [email or web address] Not available 13:29:48 Mother Heart disease Not available 13:29:21 Father Heart disease [email or web address] Not available 13:29:21 Father Hypertensive disorder [email or web address] Not available 13:29:30 Medical History Condition Response Arthritis Y Acid Reflux (GERD) Y Gynecological HistoryNo gynecological history recorded. Obstetrics History GPAL:G 0 P 0 0 0 0 Past Encounters Encounter ID Performer Location Encounter Start Date Encounter Closed Date Diagnosis/Indication Diagnosis SNOMED-CT Code Diagnosis ICD10 Code Diagnosis Note [id number] YASMANY PAN MD ENT SB [facility] [place] [address] 09/22/2022 13:18:23 09/26/2022 09:35:40 Chronic mastoiditis 26654641 H70.13 History of bilateral canal wall down mastoidect omies for chronic otorrhea; normal post-surgi kassie changes to the TMs. No evidence of infection after debridemen t. Right worse than left build-up of squamous debris/cer umen Finding of hearing aid 542696681 Z97.4 outside provider Health Concerns Section Related Observation LastModified by Organization Detai ls LastModified Time None Recorded Concern Status LastModified by Organization Details LastModified Time None Recorded Advance Directives Directive None Recorded Payers Encounter Date Sequence Insurance Name Policy Number Policy Daley Covered Member ID Daley Member ID Guarantor Name 09/22/2022 1 [facility] (MEDICARE REPLACEMENT/A DVANTAGE - PPO) [id number] Karen Mejia [id number] Karen Mejia Notes Date Note Type Note Provider Name and Address Organization Details Recorded Time 09/22/2022 text/html Self-referredChi ef Complaint: Hearing lossTiming: has always had hearing problems she states, but worsened recentlyDuration: constantLocation: AuSeverity:Quality: Context: hx of mastoid surgery [place] in late 1960s/early 1970s for chronic otorrhea/infectionM odifying Factors: wears hearing aids for ~4 years from a clinic in [facility], had hearing tested in May at that same clinic, was having ears cleaned every 6mo but has not been as consistent w/ that recentlyAssoc signs and symptoms: YASMANY PAN MD [address] [place], [address], [facility] 09/22/2022 17:14:02 OBGyn Episode No OBEpisode recorded.
== END 2024-08-19 23:59 | disposition home or self-care (01) ==
LOC: LAB.DROPOF 08-20 14:31
PROVIDERS: PCP Family Medicine; Visit Provider Family Medicine
DX: Z00.00 Encounter for general adult medical examination without abnormal findings (principal); K21.9 Gastro-esophageal reflux disease without esophagitis; R11.2 Nausea with vomiting, unspecified; E78.5 Hyperlipidemia, unspecified
CPT/HCPCS: 80053; 80061; 84443; 85025

== ENCOUNTER 2025-03-06 10:19 | Outpatient (CLI) | payer MEDICARE, SELFPAY ==
[2025-03-06 16:37] LABS: Microscopic, Urine URINE MICROSCOPIC (MICROSCOPIC)
[2025-03-06 18:22] LABS: Bilirubin,Urine Negative (Negative); Color,Urine YELLOW (Yellow); Glucose,Urine (UA) Negative (Negative); Ketones,Urine TRACE (Negative); Leukocyte Esterase,Urine 1+ (Negative); PH,Urine 5.5 (5.0-8.5); Protein,Urine TRACE (Negative); Urobilinogen,Urine 1.0 EU/dl (0.2)
[2025-03-06 18:30] LABS: Specific Gravity, Urine 1.045 (1.005-1.030)
[2025-03-06 18:31] LABS: Bacteria,Urine 1+ /lpf; RBC,Urine Occasional #/hpf (0-3); Uric Acid Crystals,Urine 2+ /lpf
--- OUTSIDE RECORDS SUMMARY | 2025-03-10 10:26 | XMS_ITS | Clinical Summary ---
Author Organization [facility] Address [address] [place] [address] Care Team Providers Care Web Master Name Role Phone System, Provider Not In MD Primary Care Provider Unavailable Allergies No known active allergies Medications cetirizine (ZyrTEC) 10 MG tablet Take 1 tablet (10 mg) by mouth 1 (one) time each day. Active pravastatin (Pravachol) 20 MG tablet Take 1 tablet (20 mg) by mouth Daily at Bedtime. 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 Vitamin D deficiency 06/06/2016 Mixed hyperlipidemia 05/25/2016 Cataract 02/26/2016 Methicillin resistant Staphylococcus aureus infe ction 02/26/2016 Osteoporosis 02/26/2016 Chronic mastoiditis 04/10/2015 Resolved Problems Problem Noted Date Diagnosed Date Resolved Date Acute kidney injury 06/21/2024 01/27/20 25 Diarrhea 06/21/2024 01/26/2025 Gastroenteritis 06/21/2024 01/26/2025 Nausea and vomiting 06/21/2024 01/27/20 25 Upper respiratory infection 06/21/2024 01/26/2025 Immunizations Immunization Administration Dates Next Due Pneumococcal Conjugate PCV 13 09/05/2017 Tdap 09/05/2017 Family History Medical History Relation Name Comments Cancer Father Juan David Lopez Prostate cancer Father Juan David Lopez Heart disease Mother Rani Lopez Relation Name Status Comments Father Juan David Lopez Mother Rani Lopez Social History Tobacco Use Types Packs/Day Years Used Date Smoking Tobacco: Never Smokeless Tobacco: Never Tobacco Cessation:Counseling Given: Not Answered Alcohol Use Standard Drinks/Week Comments Never 0 (1 standard drink = 0.6 oz pur e alcohol) PHQ-2 Answer Date Recorded Patient Health Questionnaire-2 Score 0 06/21/2024 Comments Unknown Sex and Gender Information Value Date Recorded Sex Assigned at Not on file Legal Sex Female 8:57 PM EDT Gender Identity Not on file Sexual Orientation Not on file Last Filed Vital Signs Vital Sign Reading Time Taken Comments Blood Pressure 128/84 06/21/2024 1:52 PM EST Pulse 85 06/21/2024 1:52 PM EST Temperature 36.4 C (97.6 F) 06/21/2024 1:52 PM EST Respiratory Rate 10 06/21/2024 1:52 PM EST Oxygen Saturation 99% 06/21/2024 1:52 PM EST Inhaled Oxygen Concentration - - Weight 60.2 kg (132 lb 11.5 oz) 06/21/2024 1:52 PM EST Height 162.6 cm (5' 4 ) 06/21/2024 1:52 PM EST Body Mass Index 22.78 06/21/2024 1:52 PM EST Plan of Treatment Upcoming Encounters Date Type Department Care Team (Late st Contact Info) Description 06/25/2025 10:30 AM EST Office Visit [facility] [address] [place] [address] Adry Carlos P, MANAGER OF DRILLING, DNP [address] [place] [address] Health Maintenance Due Date Last Done Comments [facility]-Bone Density Scan 1948 [facility]-Hepatitis C Screening 1950 [facility]-Medicare Annual Wellness (AWV) 1950 [facility]-Infant/Child/Adol SDOH Screenings 1948 [facility]- SDOH Screenings 1966 [facility]-Adult SDOH Screenings 1966 [facility]-Zoster Vaccines (1 of 2) 1998 [facility]-Pneumococcal Vaccine: 50+ Years (2 of 2 - PCV20 or PCV21) 09/05/2018 09/05/2017 [facility]-RSV Vaccine: 60+ Years or (1 - 1-dose 75+ series) 08/28/2023 [id number] Vaccine (4 - 2024- season) 2025 03/13/2021, 07/19/2020, 06/21/2020 [facility]-Influenza Vaccine (#1) 2025 [facility]-Depression Screening 06/21/2025 06/21/2024 [facility]-DTaP,Tdap,and Td Vaccines (2 - Td or Tdap) 09/06/2027 09/05/2017 HPV Vaccines Aged Out No longer eligi ble based on patient's age to complete this topic [facility]-HIB Vaccines Aged Out No longer e ligible based on patient's age to complete this topic [facility]-Hepatitis A Vaccines Aged Out No longer eligible based on patient's age to complete this topic [facility]-IPV Vaccines Aged Out No longer e ligible based on patient's age to complete this topic [facility]-Rotavirus Vaccines Aged Out No lo nger eligible based on patient's age to complete this topic Additional Health Concerns Infection Onset Date Last Indicated MRSA 06/21/2024 06/21/2024 Insurance MEDICARE Care Teams Web Master Relationship Specialty Start Date End Date System, Provider Not In, [place] [address] PCP - General Family Medicine 04/01/24
== END 2025-03-06 23:59 ==
LOC: LAB.DROPOF 03-10 10:19
PROVIDERS: PCP Internal Medicine; Visit Provider Internal Medicine
DX: N39.0 Urinary tract infection, site not specified (principal); R39.9 Unspecified symptoms and signs involving the genitourinary system
CPT/HCPCS: 81001; 87086; 87088; 87186